=== PATIENT | male | born 1965 | race African-American/Black ===

== ENCOUNTER 2016-06-09 21:40 | Emergency (ER) | payer MEDICARE, MEDICAID ==
[2016-06-09 22:13] VITALS: BP 158/107
--- NOTE | 2016-06-09 23:17 | ER Document Report ---
ED General - General Chief Complaint: High Blood Pressure Stated Complaint: ALTERED MENTAL STATUS Cannot obtain history due to: Mentally challenged Notes: Patient is a 50-year-old male presents with family who is concerned about his high blood pressure. Patient is nonverbal and has been so since . He has a history of CVA with right-sided deficits. He is nonverbal and unable to communicate any symptoms. Family denies any concerns beyond that they noted his blood pressure was high at home so they want him evaluated because they were worried he would have a recurrent stroke. TRAVEL OUTSIDE OF THE [place] IN LAST 30 DAYS: No - Related Data Allergies/Adverse Reactions: No Known Allergies Allergy (Unverified 10/11/15 04:34) Past Medical History - General Information source: Relative - Social History Smoking Status: Never Smoker Frequency of alcohol use: None Drug Abuse: None Lives with: Family Family History: Reviewed & Not Pertinent Psychiatric Medical History: Denies: Hx Depression Review of Systems - Review of Systems -: Yes ROS unobtainable due to patient's medical condition Physical Exam - Vital signs Vitals: Pulse Resp BP Pulse Ox 76 18 158/107 H 100 06/09/16 21:49 06/09/16 21:49 06/09/16 21:49 06/09/16 21:49 Interpretation: Hypertensive Notes: PHYSICAL EXAMINATION: GENERAL: Appears in no distress HEAD: Atraumatic, normocephalic. EYES: sclera anicteric, conjunctiva are normal. ENT: Moist mucous membranes. NECK: No lymphadenopathy LUNGS: Normal work of breathing HEART: Regular rate and rhythm. 2+ radial pulses bilaterally EXTREMITIES: no pitting or edema. No cyanosis. NEUROLOGICAL: Right-sided hemiparesis. PSYCH: Nonverbal SKIN: Warm, Dry, normal turgor, no rashes or lesions noted. Course - Re-evaluation Re-evalutation: 06/09/16 23:15 Presentation of asymptomatic hypertension. Patient is nonverbal and family states the only reason they brought him to the emergency department today was because they were worried about how high his blood pressure was at home with a maximal systolic blood pressure of 176. Patient denies any symptoms concerning for SAH, dissection, VA, or encephalopaty. Alert, oriented, and denies any symptoms at time of assessment. Normal neuro exam. Per ACE[employer] policy guidelines, will therefore not obtain any labs or EKG at this time and will not initiate new BP treatment. I have discussed critical importance of follow up with PCP within 1 week and increased risk of devastating stroke, heart attack, respiratory distress, and other life threatening complications if blood pressure is not reduced appropriately. I have increased his amlodipine from 2.5 mg daily to 5 mg daily.At this time will discharge with return precautions and follow-up recommendations. Verbal discharge instructions given a the bedside and opportunity for questions given. Medication warnings reviewed. Family is in agreement with this plan and has verbalized understanding of return precautions and the need for primary care follow-up in the next 24-72 hours. - Vital Signs Vital signs: Temp Pulse Resp BP Pulse Ox 98.3 F 76 18 158/107 H 100 06/09/16 22:12 06/09/16 21:49 06/09/16 21:49 06/09/16 21:49 06/09/16 21:49 Discharge - Discharge Clinical Impression: Essential hypertension Condition: Good Disposition: HOME, SELF-CARE Additional Instructions: You were seen today for blood pressure that was high. This is a long-term risk factor for multiple medical problems including heart attack and stroke. However, the blood pressure in of itself will not cause you to have an acute stroke or heart attack over the course of just several days or weeks. You need to have a gradual reduction of your blood pressure back to normal levels over the next several months in conjunction with your primary care physician. Please increase the amlodipine from 2.5 mg to 5 mg daily. Check his blood pressure once daily in the morning. Follow closely with his primary care doctor.
== END 2016-06-09 23:25 | disposition home or self-care (01) ==
LOC: ER 21:40
DX: I10 Essential (primary) hypertension (principal); R41.82 Altered mental status, unspecified; I69.951 Hemiplegia and hemiparesis following unspecified cerebrovascular disease affecting right dominant side
CPT/HCPCS: 99283

== ENCOUNTER 2017-05-11 19:24 | Inpatient (IN) | payer MEDICARE, MEDICAID ==
[2017-05-11] MEDS ORDERED: ACETAMINOPHEN 325 MG TABLET PO ONE (20:41)
[2017-05-11] MEDS ORDERED: NORMAL SALINE 1000 ML 1,000 ML IV ONE (20:41)
--- NOTE | 2017-05-11 20:45 | ER Document Report ---
ED Fever - General Chief Complaint: Fever Stated Complaint: FEVER Time Seen by Provider: 05/11/17 20:35 Notes: Patient is a 51-year-old male that comes emergency department for chief complaint of fever, sister who is his local area network systems adminstrator at home states that his fever started Sunday and has continued over the past 2 days, patient also has a congested cough. No vomiting, patient is eating and drinking normally, patient is nonverbal but he has not had any obvious complaints per sister. Patient nonverbal after CVA, he is medicated for hypertension and takes aspirin but no other medical history is reported. He has had the influenza vaccine. TRAVEL OUTSIDE OF THE [place] IN LAST 30 DAYS: No - Related Data Allergies/Adverse Reactions: No Known Allergies Allergy (Unverified 05/11/17 19:30) Past Medical History - General Information source: Patient - Social History Smoking Status: Never Smoker Frequency of alcohol use: None Drug Abuse: None Lives with: Family Family History: Reviewed & Not Pertinent - Past Medical History Cardiac Medical History: Reports: Hx Hypertension Neurological Medical History: Reports: Hx Cerebrovascular Accident - Nonverbal after CVA Psychiatric Medical History: Denies: Hx Depression - Immunizations Immunizations up to date: Yes Hx Diphtheria, Pertussis, Tetanus Vaccination: Yes Review of Systems - Review of Systems Constitutional: See HPI EENT: No symptoms reported Cardiovascular: No symptoms reported Respiratory: See HPI Gastrointestinal: No symptoms reported Genitourinary: No symptoms reported Male Genitourinary: No symptoms reported Musculoskeletal: No symptoms reported Skin: No symptoms reported Hematologic/Lymphatic: No symptoms reported Neurological/Psychological: No symptoms reported Physical Exam - Vital signs Vitals: Temp Pulse Resp BP Pulse Ox 103.1 F H 127 H 16 118/95 H 95 05/11/17 19:39 05/11/17 19:39 05/11/17 19:39 05/11/17 19:39 05/11/17 19:39 - General General appearance: Alert In distress: None - HEENT Head: Normocephalic, Atraumatic Eyes: Normal Conjunctiva: Normal Extraocular movements intact: Yes Eyelashes: Normal Pupils: PERRL Mouth/Lips: Normal Mucous membranes: Normal Pharynx: Normal Neck: Normal - Respiratory Respiratory status: No respiratory distress, Tachypnea - Minimal tachypnea Breath sounds: Nonproductive cough. No: Decreased air movement, Wheezing - Cardiovascular Rhythm: Regular, Tachycardia Heart sounds: Normal auscultation, S1 appreciated, S2 appreciated Murmur: No Normal capillary refill: Yes - Abdominal Inspection: Normal Tenderness: Nontender. No: Tender, McBurney's point, Richardson's sign, Guarding - Back Back: Normal, Nontender. No: Tender - Extremities General upper extremity: Normal inspection, Nontender, Normal strength, Normal temperature General lower extremity: Normal inspection, Nontender, Normal strength, Normal temperature. No: Edema - Neurological Neuro grossly intact: Yes Christopher Coma Scale Eye Opening: Spontaneous Christopher Coma Scale Verbal: Oriented Christopher Coma Scale Motor: Obeys Commands [place] Coma Scale Total: 15 Speech: Normal Cranial nerves: Normal Cerebellar coordination: Normal Motor strength normal: LUE, RUE, LLE, RLE Additional motor exam normals: Equal transportation analyst Sensory: Normal - Psychological Associated symptoms: Normal affect, Normal mood - Skin Skin Temperature: Hot Skin Moisture: Dry Skin Color: Flushed Course - Re-evaluation Re-evalutation: 05/11/17 20:40 Patient febrile and tachycardic, has a congested cough, possible pneumonia and sepsis. Clear lung sounds, no hypoxia, no respiratory distress, normal capillary refill, soft abdomen, cooperative and alert. Workup pending. Treating fever, giving IV fluids. Chest x-ray consistent with right lower lobe pneumonia. CBC shows leukocytosis with left shift but no bandemia. Chemistry generally unremarkable. EKG showing tachycardia. Starting antibiotics. 05/11/17 22:15 Patient has been reevaluated, he does have mild hypoxia at about 93-94% on room air, placed on 2 L nasal cannula. Minimal tachypnea, no obvious signs of distress. Good capillary refill. Alert, responsive, cooperative. Tachycardia has improved but still persists. Suspected sepsis without shock. 05/12/[address] Gunter, patient will be admitted to the hospital ( telemetry full admission) for pneumonia and possible sepsis. Sister states understanding and agreement. - Vital Signs Vital signs: Temp Pulse Resp BP Pulse Ox 98.2 F 127 H 16 118/95 H 95 05/11/17 21:50 05/11/17 19:39 05/11/17 19:39 05/11/17 19:39 05/11/17 19:39 - Laboratory Result Diagrams: 05/11/17 21:00 05/11/17 21:00 Laboratory results interpreted by me: 05/11/17 05/11/17 05/11/17 20:38 21:00 21:00 WBC 16.3 H RBC 4.27 L Hgb 12.9 L Hct 37.6 L RDW 14.1 H Seg Neuts % (Manual) 91 H Lymphocytes % (Manual) 4 L Abs Neuts (Manual) 14.8 H VBG pH Potassium 3.2 L Glucose 116 H Magnesium Urine Protein 100 H Urine Blood MODERATE H Urine Urobilinogen 2.0 H 05/11/17 05/11/17 21:00 22:09 WBC RBC Hgb Hct RDW Seg Neuts % (Manual) Lymphocytes % (Manual) Abs Neuts (Manual) VBG pH 7.47 H Potassium Glucose Magnesium 1.5 L Urine Protein Urine Blood Urine Urobilinogen Discharge - Discharge Clinical Impression: Tachycardia, Hypoxia Fever Qualifiers: Fever type: unspecified Qualified Code(s): R50.9 - Fever, unspecified Pneumonia Qualifiers: Pneumonia type: due to unspecified organism Laterality: right Lung location: lower lobe of lung Qualified Code(s): J18.1 - Lobar pneumonia, unspecified organism Leukocytosis Qualifiers: Leukocytosis type: unspecified Qualified Code(s): D72.829 - Elevated white blood cell count, unspecified Condition: Stable Disposition: ADMITTED INPATIENT Admitting Provider: Hospitalist Unit Admitted: Telemetry
[2017-05-11 21:22] LABS: HEMATOCRIT 37.6 % (37.9-51.0); HEMOGLOBIN 12.9 g/dL (13.5-17.0); MEAN CORPUSCULAR HEMOGLOBIN 30.2 pg (27.0-33.4); MEAN CORPUSCULAR HGB CONC 34.2 g/dL (32.0-36.0); MEAN CORPUSCULAR VOLUME 88 fl (80-97); PLATELET COUNT 158 10^3/uL (150-450); RED BLOOD COUNT 4.27 10^6/uL (4.35-5.55); RED CELL DISTRIBUTION WIDTH 14.1 % (11.5-14.0); WHITE BLOOD COUNT 16.3 10^3/uL (4.0-10.5)
[2017-05-11 21:30] LABS: INTERNATIONAL RATION (INR) 1.14; PROTHROMBIN TIME 15.3 SEC (11.4-15.4)
--- NOTE | 2017-05-11 21:39 | RADIOLOGY REPORT (SQ) ---
EXAM DESCRIPTION: CHEST PA/LAT COMPLETED DATE/TIME: 05/11/2017 9:22 pm REASON FOR STUDY: cough, fever COMPARISON: 10/10/2015 EXAM PARAMETERS: NUMBER OF VIEWS: two views TECHNIQUE: Digital Frontal and Lateral radiographic views of the chest acquired. RADIATION DOSE: NA LIMITATIONS: none FINDINGS: LUNGS AND PLEURA: New patchy consolidation in the right lower lobe. No pleural effusion o r pneumothorax. MEDIASTINUM AND HILAR STRUCTURES: Stable. HEART AND VASCULAR STRUCTURES: Stable. BONES: No acute findings. HARDWARE: None in the chest. OTHER: No other significant finding. IMPRESSION: New patchy consolidation in the right lower lobe. TECHNICAL DOCUMENTATION: JOB ID: [id number] [id number] 2010 [employer]- All Rights Reserved Reading location - IP/workstation name: [email or web address]
[2017-05-11 21:42] LABS: ALANINE AMINOTRANSFERASE 56 U/L (21-72); ALBUMIN 4.3 g/dL (3.5-5.0); ALKALINE PHOSPHATASE 72 U/L (38-126); ANION GAP 12 (5-19); ASPARTATE AMINO TRANSFERASE 47 U/L (17-59); BILIRUBIN,DIRECT 0.4 mg/dL (0.0-0.4); BILIRUBIN,TOTAL 0.5 mg/dL (0.2-1.3); BLOOD UREA NITROGEN 15 mg/dL (7-20); CALCIUM 9.1 mg/dL (8.4-10.2); CARBON DIOXIDE 28 mmol/L (22-30); CHLORIDE 98 mmol/L (98-107); GLUCOSE 116 mg/dL (75-110); POTASSIUM 3.2 mmol/L (3.6-5.0); SODIUM 138.2 mmol/L (137-145); TOTAL PROTEIN 7.6 g/dL (6.3-8.2)
[2017-05-11 21:48] LABS: ABSOLUTE LYMPHOCYTES# (MANUAL) 0.7 10^3/uL (0.5-4.7); ABSOLUTE MONOCYTES # (MANUAL) 0.8 10^3/uL (0.1-1.4); ABSOLUTE NEUTROPHILS# (MANUAL) 14.8 10^3/uL (1.7-8.2); BASOPHILS % (MANUAL) 0 % (0-2); EOSINOPHILS % (MANUAL) 0 % (0-6); LYMPHOCYTES % (MANUAL) 4 % (13-45); MONOCYTES % (MANUAL) 5 % (3-13); SEGMENTED NEUTROPHILS % (MAN) 91 % (42-78); TOTAL CELLS COUNTED 100
[2017-05-11 21:49] LABS: ANISOCYTOSIS SLIGHT; PLATELET COMMENT ADEQUATE; TOXIC GRANULATION SLIGHT
[2017-05-11 21:51] LABS: APPEARANCE,URINE SLIGHTLY-CLOUDY; BILIRUBIN,URINE NEGATIVE (NEGATIVE); COLOR,URINE YELLOW; GLUCOSE, URINE NEGATIVE (NEGATIVE); KETONES,URINE NEGATIVE (NEGATIVE); LEUKOCYTE ESTERASE,URINE NEGATIVE (NEGATIVE); NITRITE,URINE NEGATIVE (NEGATIVE); PROTEIN,URINE 100 mg/dL (NEGATIVE); URINE SPECIFIC GRAVITY 1.018
[2017-05-11] MEDS ORDERED: AZITHROMYCIN INJ 500 MG VIAL IV ONE (22:00)
[2017-05-11] MEDS ORDERED: CEFTRIAXONE 1 GM/D5W RTU 1 GM/50 ML RTUPB IV ONE (22:00)
[2017-05-11] MEDS ORDERED: CEFTRIAXONE INJ 1000 MG VIAL ONE (22:06)
[2017-05-11] MEDS ORDERED: ACETAMINOPHEN 325 MG TABLET PO PRN (22:22)
[2017-05-11] MEDS ORDERED: ALBUTEROL SULFATE 0.083% NEB 2.5 MG/3 ML AMPUL NEB PRN (22:22)
[2017-05-11] MEDS ORDERED: PROMETHAZINE HCL INJ 25 MG/1 ML VIAL IV PRN (22:22)
[2017-05-11 22:26] LABS: VENOUS BLOOD BASE EXCESS 2.8 mmol/L; VENOUS BLOOD HCO3 26.4 mmol/L (20-32); VENOUS BLOOD PCO2 37.1 mmHg (35-63); VENOUS BLOOD PH 7.47 (7.30-7.42)
[2017-05-12] MEDS ORDERED: POTASSIUM CHLORIDE 10 MEQ TABLET.SA PO ONE ×2 (01:06→05:50)
[2017-05-12] MEDS ORDERED: MAGNESIUM SULFATE INJ 8 MEQ/2 ML IV ONE (01:07)
--- NOTE | 2017-05-12 01:09 | PDOC H&P ---
History of Present Illness Admission Date/PCP: KWASI MENDOZA MD Patient complains of: Intermittent fever and worsening dry cough for the last 3 days per sister. 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 The patient apparently has been spiking fevers up to 102 and has been having dry cough for the last 3 days. But she did not notice that he was having any shortness of breath or chest pain. The patient's mother and other sister whom he lives with both have a cold. He is up-to-date with his flu vaccine. His sister also mentioned that the patient is on a regular diet and he does not choke on his food. In the ED, his temperature was 103.1, heart rate 127, respiratory rate 16, blood pressure 118/95 with oxygen saturation of 95% on room air. His WBC was 16.3 with hemoglobin of 12.9. A chest x-ray was done which showed right lower lobe pneumonia. He received 1 g Rocephin and 500 mg IV Zithromax 1. 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 Children Family History Reviewed: No Sibling(s) Family History Reviewed.: Yes Medication/Allergy Home Medications: Amlodipine Besylate [Norvasc 2.5 mg Tablet] 2.5 mg PO DAILY #30 tablet 10/13/15 Aspirin [Ecotrin 81 mg EC Tablet] 81 mg PO DAILY tabec 10/13/15 Atorvastatin Calcium [Lipitor 20 mg Tablet] 20 mg PO QHS #30 tablet 10/13/15 Docusate Sodium [Colace 100 mg Capsule] 100 mg PO DAILY #30 capsule 10/13/15 Polyethylene Glycol 3350 [Miralax Powder 17 gm/Packet] 1 packet PO DAILY PRN # 30 pkg 10/13/15 Allergies/Adverse Reactions: No Known Allergies Allergy (Unverified 05/11/17 19:30) Review of Systems ROS unobtainable: Other - Pertinent positive and negatives as detailed in HPI. Is no report of any nausea vomiting, abdominal pain, diarrhea or any urinary problems. He ambulates using a cane per his sister. Physical Exam Vital Signs: Temp Pulse Resp BP Pulse Ox 98.2 F 127 H 16 118/95 H 95 05/11/17 21:50 05/11/17 19:39 05/11/17 19:39 05/11/17 19:39 05/11/17 19:39 Intake & Output 05/10/17 05/11/17 05/12/17 06:59 06:59 06:59 Weight 66.7 kg General appearance: PRESENT: no acute distress, well-developed Head exam: PRESENT: atraumatic, normocephalic Eye exam: PRESENT: conjunctiva pink, PERRLA. ABSENT: scleral icterus Mouth exam: PRESENT: moist, tongue midline Neck exam: PRESENT: full ROM. ABSENT: JVD Respiratory exam: PRESENT: decreased breath sounds. ABSENT: rales, rhonchi, wheezes Cardiovascular exam: PRESENT: RRR, +S1, +S2 Pulses: PRESENT: normal dorsalis pedis pul GI/Abdominal exam: PRESENT: normal bowel sounds, soft. ABSENT: distended, rebound, tenderness Rectal exam: PRESENT: deferred Extremities exam: PRESENT: other - able to move all 4 extremities. Neurological exam: PRESENT: alert, awake Skin exam: PRESENT: dry, warm. ABSENT: erythema, rash Results Laboratory Results: 05/11/17 21:00 05/11/17 21:00 05/11/17 05/11/17 05/11/17 20:38 21:00 21:00 WBC 16.3 H RBC 4.27 L Hgb 12.9 L Hct 37.6 L MCV 88 MCH 30.2 MCHC 34.2 RDW 14.1 H Plt Count 158 Seg Neutrophils % Not Reportable Lymphocytes % Not Reportable Monocytes % Not Reportable Eosinophils % Not Reportable Basophils % Not Reportable Absolute Neutrophils Not Reportable Absolute Lymphocytes Not Reportable Absolute Monocytes Not Reportable Absolute Eosinophils Not Reportable Absolute Basophils Not Reportable Sodium 138.2 Potassium 3.2 L Chloride 98 Carbon Dioxide 28 Anion Gap 12 BUN 15 Creatinine 0.85 Est GFR ( Amer) > 60 Est GFR (Non-Af Amer) > 60 Glucose 116 H Lactic Acid Calcium 9.1 Magnesium Total Bilirubin 0.5 AST 47 ALT 56 Alkaline Phosphatase 72 Total Protein 7.6 Albumin 4.3 Urine Color YELLOW Urine Appearance SLIGHTLY-CLOUDY Urine pH 6.0 Ur Specific [place] 1.018 Urine Protein 100 H Urine Glucose (UA) NEGATIVE Urine Ketones NEGATIVE Urine Blood MODERATE H Urine Nitrite NEGATIVE Ur Leukocyte Esterase NEGATIVE Urine WBC (Auto) 4 Urine RBC (Auto) 11 05/11/17 05/11/17 21:00 21:00 WBC RBC Hgb Hct MCV MCH MCHC RDW Plt Count Seg Neutrophils % Lymphocytes % Monocytes % Eosinophils % Basophils % Absolute Neutrophils Absolute Lymphocytes Absolute Monocytes Absolute Eosinophils Absolute Basophils Sodium Potassium Chloride Carbon Dioxide Anion Gap BUN Creatinine Est GFR ( Amer) Est GFR (Non-Af Amer) Glucose Lactic Acid 1.3 Calcium Magnesium 1.5 L Total Bilirubin AST ALT Alkaline Phosphatase Total Protein Albumin Urine Color Urine Appearance Urine pH Ur Specific [place] Urine Protein Urine Glucose (UA) Urine Ketones Urine Blood Urine Nitrite Ur Leukocyte Esterase Urine WBC (Auto) Urine RBC (Auto) EKG Comments: Lead EKG, sinus rhythm, ventricular rate 110, axis +100, no acute changes. Impressions: Chest X-Ray 05/11/17 20:41 IMPRESSION: New patchy consolidation in the right lower lobe. Assessment & Plan - Diagnosis (1) Sepsis Qualifiers: Sepsis type: sepsis due to unspecified organism Qualified Code(s): A41.9 - Sepsis, unspecified organism Is this a current diagnosis for this admission?: Yes Plan: Given fever, tachycardia in addition to leukocytosis in the setting of pneumonia. However, the patient does not look clinically septic. Lactic acid 1.3. We will continue Rocephin and Zithromax and follow-up blood cultures. (2) Community acquired pneumonia Is this a current diagnosis for this admission?: Yes Plan: We will continue Rocephin and Zithromax and follow-up blood cultures. (3) Essential hypertension Is this a current diagnosis for this admission?: No Plan: We will resume Norvasc 10 mg daily and monitor. (4) Electrolyte abnormality Is this a current diagnosis for this admission?: Yes Plan: hypokalemia and hypomagnesemia, will replace. (5) History of CVA with residual deficit Is this a current diagnosis for this admission?: No Plan: Right-sided weakness. The patient is only on baby aspirin, we will add Lipitor. - Time Time Spent: 50 to 70 Minutes Anticipated discharge: Home - Inpatient Certification Based on my medical assessment, after consideration of the patient's comorbidities, presenting symptoms, or acuity I expect that the services needed warrant INPATIENT care.: Yes I certify that my determination is in accordance with my understanding of Medicare's requirements for reasonable and necessary INPATIENT services [42 CFR 412.3e].: Yes
[2017-05-12] MEDS: 1/2 NORMAL SALINE 1,000 ML IV PRN ×2 (01:10→15:16)
[2017-05-12] MEDS ORDERED: MAGNESIUM SULFATE/D5W 0 GM/0 ML RTUPB IV ONE (05:51)
[2017-05-12 06:03] LABS: HEMATOCRIT 37.8 % (37.9-51.0); HEMOGLOBIN 12.8 g/dL (13.5-17.0); MEAN CORPUSCULAR HEMOGLOBIN 30.2 pg (27.0-33.4); MEAN CORPUSCULAR HGB CONC 33.9 g/dL (32.0-36.0); MEAN CORPUSCULAR VOLUME 89 fl (80-97); PLATELET COUNT 139 10^3/uL (150-450); RED BLOOD COUNT 4.25 10^6/uL (4.35-5.55); RED CELL DISTRIBUTION WIDTH 14.3 % (11.5-14.0)
[2017-05-12] MEDS ORDERED: MAGNESIUM SULFATE/D5W 1 GM/100 ML RTUPB IV ONE (06:15)
[2017-05-12 06:21] LABS: ANION GAP 10 (5-19); BLOOD UREA NITROGEN 11 mg/dL (7-20); CALCIUM 8.7 mg/dL (8.4-10.2); CARBON DIOXIDE 28 mmol/L (22-30); CHLORIDE 104 mmol/L (98-107); GLUCOSE 93 mg/dL (75-110); POTASSIUM 3.4 mmol/L (3.6-5.0); SODIUM 142.4 mmol/L (137-145)
[2017-05-12] MEDS ORDERED: POTASSIUM CHLORIDE 20 MEQ/15 ML UDCUP PO ONE (06:30)
[2017-05-12] MEDS: HEPARIN SOD (PORCINE) 5,000 UNIT/ML 1 ML SYRINGE SUBCUT SCH ×3 (06:53→21:37)
[2017-05-12] MEDS: GUAIFENESIN 600 MG TABLET.SA PO SCH ×2 (09:46→21:37)
[2017-05-12] MEDS: ASPIRIN 81 MG TABLET, ENT COATED PO SCH (09:46)
[2017-05-12] MEDS: AMLODIPINE BESYLATE 10 MG TABLET PO SCH (09:47)
--- NOTE | 2017-05-12 10:16 | EKG REPORT ---
SEVERITY:- OTHERWISE NORMAL ECG - SINUS TACHYCARDIA BORDERLINE RIGHT AXIS DEVIATION : Confirmed by: Uvaldo Temple 12-May-2017 10:15:20
--- NOTE | 2017-05-12 18:19 | PDOC PROGRESS REPORT ---
Subjective Progress Note for:: 05/12/17 Subjective:: Cornel Campa Jr is a 51 year old male who presented to the hospital for fevers and a dry cough for 3 days. Chest x-ray was done which showed right lower lobe pneumonia. The patient received 1 g Rocephin and 500 mg IV Zithromax 1. PMH CVA (right-sided residual weakness 2014), hypertension The patient was seen this morning on rounds. He is awake, chronically nonverbal , and attempts to participate in care. The patient's sister is at the bedside, she reports that the patient was able to eat his breakfast. And his breathing seems far less labored this morning compared to yesterday. The patient does not require supplemental oxygen, he is resting comfortably in room air. Reason For Visit: SEPSIS,RLL PNEUMONIA Physical Exam Vital Signs: Temp Pulse Resp BP Pulse Ox 98.5 F 102 H 16 118/75 92 05/12/17 15:09 05/12/17 15:09 05/12/17 15:09 05/12/17 15:09 05/12/17 15:09 Intake & Output 05/11/17 05/12/17 05/13/17 06:59 06:59 07:59 Intake Total 445 1004 Output Total 200 Balance 245 1004 Weight 66.7 kg General appearance: PRESENT: no acute distress Head exam: PRESENT: atraumatic Eye exam: PRESENT: conjunctiva pink Mouth exam: PRESENT: moist Neck exam: PRESENT: full ROM Respiratory exam: PRESENT: clear to auscultation jarret, symmetrical, unlabored Cardiovascular exam: PRESENT: +S1, +S2 Pulses: PRESENT: normal radial pulses, normal dorsalis pedis pul Vascular exam: PRESENT: normal capillary refill GI/Abdominal exam: PRESENT: normal bowel sounds, soft Rectal exam: PRESENT: deferred Extremities exam: PRESENT: other - Right-sided hemiparesis. Difficulty with fine motor in both hands Musculoskeletal exam: PRESENT: full ROM Neurological exam: PRESENT: alert, awake, oriented to person, oriented to place , oriented to time, oriented to situation Psychiatric exam: PRESENT: appropriate affect Skin exam: PRESENT: normal color Results Laboratory Results: 05/12/17 05:03 05/12/17 05:03 05/12/17 05/12/17 05:03 05:03 WBC 11.0 H RBC 4.25 L Hgb 12.8 L Hct 37.8 L MCV 89 MCH 30.2 MCHC 33.9 RDW 14.3 H Plt Count 139 L Sodium 142.4 Potassium 3.4 L Chloride 104 Carbon Dioxide 28 Anion Gap 10 BUN 11 Creatinine 0.77 Est GFR ( Amer) > 60 Est GFR (Non-Af Amer) > 60 Glucose 93 Calcium 8.7 Magnesium 1.8 Impressions: Chest X-Ray 05/11/17 20:41 IMPRESSION: New patchy consolidation in the right lower lobe. Assessment & Plan - Diagnosis (1) Community acquired pneumonia Qualifiers: Laterality: right Lung location: lower lobe of lung Qualified Code(s): J18.1 - Lobar pneumonia, unspecified organism Is this a current diagnosis for this admission?: Yes Plan: Continue Rocephin and Zithromax. Blood cultures no growth (2) Essential hypertension Is this a current diagnosis for this admission?: No Plan: Resume home dose of Norvasc 10 mg daily (3) History of CVA with residual deficit Is this a current diagnosis for this admission?: No Plan: Right-sided weakness. aphasia. Continue aspirin and Lipitor. (4) Sepsis Qualifiers: Sepsis type: sepsis due to unspecified organism Qualified Code(s): A41.9 - Sepsis, unspecified organism Is this a current diagnosis for this admission?: Yes Plan: Improved. The patient is no longer febrile or tachycardic. His leukocytosis is greatly improved. VSS. Patient appears nontoxic. Continue Rocephin and Zithromax for pneumonia. Blood and urine cultures no growth. - Time Time Spent with patient: 15-24 minutes Medications reviewed and adjusted accordingly: Yes Anticipated discharge: Home - Inpatient Certification Based on my medical assessment, after consideration of the patient's comorbidities, presenting symptoms, or acuity I expect that the services needed warrant INPATIENT care.: Yes I certify that my determination is in accordance with my understanding of Medicare's requirements for reasonable and necessary INPATIENT services [42 CFR 412.3e].: Yes Medical Necessity: Need for IV Antibiotics - Plan Summary Plan Summary: The plan is to discharge the patient home going antibiotic therapy for his pneumonia
[2017-05-12] MEDS: ATORVASTATIN CALCIUM 40 MG TABLET PO SCH (21:37)
[2017-05-12] MEDS: AZITHROMYCIN 500 MG in DEXTROSE 5%-WATER 250 ML IV SCH (21:38)
[2017-05-12] MEDS: CEFTRIAXONE SODIUM 1,000 MG in NORMAL SALINE 100 ML IV SCH (21:38)
[2017-05-12] MEDS ORDERED: CEFTRIAXONE 1 GM/D5W RTU 1 GM/50 ML RTUPB IV SCH (22:00)
[2017-05-12] MEDS ORDERED: VANCOMYCIN HCL INJ 1000 MG VIAL IV PRN (23:58)
[2017-05-13] MEDS ORDERED: PHARMACY COMMUNICATION ORDER MC SCH (00:15)
[2017-05-13] MEDS ORDERED: VANCOMYCIN HCL INJ 1000 MG VIAL ONE (00:46)
[2017-05-13] MEDS ORDERED: VANCOMYCIN HCL 1,000 MG in DEXTROSE 5%-WATER 250 ML IV ONE (01:00)
[2017-05-13] MEDS: HEPARIN SOD (PORCINE) 5,000 UNIT/ML 1 ML SYRINGE SUBCUT SCH ×3 (06:44→22:13)
[2017-05-13] MEDS: AMLODIPINE BESYLATE 10 MG TABLET PO SCH (10:37)
[2017-05-13] MEDS: ASPIRIN 81 MG TABLET, ENT COATED PO SCH (10:37)
[2017-05-13] MEDS: GUAIFENESIN 600 MG TABLET.SA PO SCH ×2 (10:37→22:13)
[2017-05-13] MEDS: 1/2 NORMAL SALINE 1,000 ML IV PRN (11:12)
--- NOTE | 2017-05-13 12:04 | PDOC PROGRESS REPORT ---
Subjective Progress Note for:: 05/13/17 Subjective:: Cornel Campa Jr is a 51 year old male who presented to the hospital for fevers and a dry cough for 3 days. Chest x-ray was done which showed right lower lobe pneumonia. In the ED, the patient received 1 g Rocephin and 500 mg IV Zithromax 1. PMH CVA (right-sided residual weakness 2014), hypertension The patient was seen this morning on rounds. He is awake, chronically nonverbal , and attempts to participate in care. The patient's sister is at the bedside, she reports that the patient has been coughing but not able to bring up mucous. Reason For Visit: SEPSIS,RLL PNEUMONIA Physical Exam Vital Signs: Temp Pulse Resp BP Pulse Ox 99.7 F 102 H 20 132/90 H 91 L 05/13/17 08:39 05/13/17 08:39 05/13/17 08:39 05/13/17 08:39 05/13/17 08:39 Intake & Output 05/12/17 05/13/17 05/14/17 05:59 06:59 06:59 Intake Total Output Total Balance Weight General appearance: PRESENT: no acute distress Eye exam: PRESENT: conjunctiva pink Mouth exam: PRESENT: moist Respiratory exam: PRESENT: clear to auscultation jarret, symmetrical, unlabored Cardiovascular exam: PRESENT: +S1, +S2 Pulses: PRESENT: normal radial pulses, normal dorsalis pedis pul Vascular exam: PRESENT: normal capillary refill GI/Abdominal exam: PRESENT: normal bowel sounds, soft Rectal exam: PRESENT: deferred Extremities exam: PRESENT: other - R sided weakness -residual deficit from previous CVA in 2014 Musculoskeletal exam: PRESENT: other - Right-sided weakness -residual deficits from CVA in 2014. Patient also noted to have difficulty with fine motor skills in both hands Neurological exam: PRESENT: alert, awake, oriented to person, oriented to place , oriented to time, oriented to situation Psychiatric exam: PRESENT: appropriate affect Results Laboratory Results: 05/12/17 05:03 05/12/17 05:03 Impressions: Chest X-Ray 05/11/17 20:41 IMPRESSION: New patchy consolidation in the right lower lobe. Status: Imported from PACS Assessment & Plan - Diagnosis (1) Community acquired pneumonia Qualifiers: Laterality: right Lung location: lower lobe of lung Qualified Code(s): J18.1 - Lobar pneumonia, unspecified organism Is this a current diagnosis for this admission?: Yes Plan: The patient shows no signs of respiratory distress, he is non-toxic appearing. The sister states the patient is coughing but unable to bring up secretions. Continue mucinex, Rocephin and Zithromax. Blood cultures no growth - only contamination (2) Essential hypertension Is this a current diagnosis for this admission?: No Plan: The patient's blood pressure has been well controlled on his home medications. Continue Norvasc 10 mg daily. (3) History of CVA with residual deficit Is this a current diagnosis for this admission?: No Plan: Right-sided weakness. poor fine motor skills in both hands. aphasia. Continue aspirin and Lipitor. (4) Sepsis Qualifiers: Sepsis type: sepsis due to unspecified organism Qualified Code(s): A41.9 - Sepsis, unspecified organism Is this a current diagnosis for this admission?: Yes Plan: Improved. The patient is no longer febrile or tachycardic. Leukocytosis improving. VSS. Patient appears nontoxic. Continue Rocephin and Zithromax for pneumonia. Urine cultures: no growth Blood cultures: 1 out of 4 bottles grew coag negative staph. likely contamination. will keep same antibiotic regimen. - Time Time Spent with patient: 15-24 minutes Anticipated discharge: Home - Inpatient Certification Based on my medical assessment, after consideration of the patient's comorbidities, presenting symptoms, or acuity I expect that the services needed warrant INPATIENT care.: Yes I certify that my determination is in accordance with my understanding of Medicare's requirements for reasonable and necessary INPATIENT services [42 CFR 412.3e].: Yes Medical Necessity: Risk of Complication if Not Cared For in Hospital - Plan Summary Plan Summary: The plan is to discharge the patient back home in the care of his family
[2017-05-13] MEDS ORDERED: VANCOMYCIN HCL 750 MG in DEXTROSE 5%-WATER 250 ML IV ONE (12:30)
[2017-05-13] MEDS: VANCOMYCIN HCL 750 MG in DEXTROSE 5%-WATER 250 ML IV SCH (17:51)
[2017-05-13] MEDS: ATORVASTATIN CALCIUM 40 MG TABLET PO SCH (22:13)
[2017-05-13] MEDS: CEFTRIAXONE SODIUM 1,000 MG in NORMAL SALINE 100 ML IV SCH (22:13)
[2017-05-13] MEDS: AZITHROMYCIN 500 MG in DEXTROSE 5%-WATER 250 ML IV SCH (22:58)
[2017-05-14] MEDS: VANCOMYCIN HCL 750 MG in DEXTROSE 5%-WATER 250 ML IV SCH ×2 (01:33→10:47)
[2017-05-14] MEDS: HEPARIN SOD (PORCINE) 5,000 UNIT/ML 1 ML SYRINGE SUBCUT SCH ×2 (05:02→14:26)
[2017-05-14 05:53] LABS: HEMATOCRIT 36.8 % (37.9-51.0); HEMOGLOBIN 12.7 g/dL (13.5-17.0); MEAN CORPUSCULAR HEMOGLOBIN 30.4 pg (27.0-33.4); MEAN CORPUSCULAR HGB CONC 34.5 g/dL (32.0-36.0); MEAN CORPUSCULAR VOLUME 88 fl (80-97); PLATELET COUNT 164 10^3/uL (150-450); RED BLOOD COUNT 4.18 10^6/uL (4.35-5.55); WHITE BLOOD COUNT 6.4 10^3/uL (4.0-10.5)
[2017-05-14] MEDS: ASPIRIN 81 MG TABLET, ENT COATED PO SCH (09:55)
[2017-05-14] MEDS: GUAIFENESIN 600 MG TABLET.SA PO SCH (09:55)
[2017-05-14 10:33] LABS: VANCOMYCIN,TROUGH 9.1 ug/mL (5.0-20.0)
[2017-05-14] MEDS: AMLODIPINE BESYLATE 10 MG TABLET PO SCH (10:47)
[2017-05-14] MEDS ORDERED: PROMETHAZINE HCL INJ 25 MG/1 ML VIAL IV PRN (12:30)
[2017-05-14 14:39] VITALS: BP 134/91
[2017-05-14] MEDS ORDERED: GUAIFENESIN 600 MG TABLET.SA PO SCH (22:00)
[2017-05-15] MEDS ORDERED: ASPIRIN 81 MG TABLET, ENT COATED PO SCH (10:00)
--- NOTE | 2017-06-01 09:49 | PDOC DISCHARGE SUMMARY ---
General - Admit/Disc Date/PCP Admission Date/Primary Care Provider: 05/11/17 22:21 KWASI MENDOZA MD Discharge Date: 05/14/17 - Discharge Diagnosis (1) Community acquired pneumonia Is this a current diagnosis for this admission?: Yes Summary: Treated with Rocephin and Zithromax for community acquired PNA. Patient's sister (caregiver) states he is able to cough, but unable to bring up secretions. Treated with mucinex, continued post-discharge. Discharged home on PO levaquin. (2) Essential hypertension Is this a current diagnosis for this admission?: No Summary: Family endorses a history of HTN. Blood pressure well controlled on home dose Norvasc. Continue post discharge (3) History of CVA with residual deficit Is this a current diagnosis for this admission?: No Summary: CVA in 2014. Residual R sided weakness. Poor fine motor control in both hands. Able to ambulate with assistance. Patient on ASA and statin therapy. (4) Sepsis Is this a current diagnosis for this admission?: Yes Summary: Initially presented with sepsis as evidence by tachycardia, leukocytosis, and fever. Following IVF and antibiotics, the patient's vital signs stabilized and his leukocytosis improved. Urine culture: no growth Blood culture: 1 out of 4 bottles grew coag negative staph, likely contamination. no change to antibiotic regimen - Additional Information Resuscitation Status: Full Code Discharge Diet: As Tolerated Discharge Activity: Activity As Tolerated Prescriptions: Guaifenesin [Mucinex Sr 600 mg Tablet.sa] 1,200 mg PO Q12 #14 tablet.sa Levofloxacin [Levaquin 750 mg Tablet] 750 mg PO DAILY #5 tablet Home Medications: Aspirin [Ecotrin 81 mg EC Tablet] 81 mg PO DAILY tabec 10/13/15 Amlodipine Besylate 10 mg PO DAILY 05/12/17 Cetirizine HCl [Zyrtec 10 mg Tablet] 10 mg PO DAILY 05/12/17 Amlodipine Besylate [Norvasc 10 mg Tablet] 10 mg PO DAILY tablet 05/14/17 Aspirin [Ecotrin 81 mg EC Tablet] 81 mg PO DAILY tabec 05/14/17 Atorvastatin Calcium [Lipitor 40 mg Tablet] 40 mg PO QHS tablet 05/14/17 Guaifenesin [Mucinex Sr 600 mg Tablet.sa] 1,200 mg PO Q12 #14 tablet.sa Levofloxacin [Levaquin 750 mg Tablet] 750 mg PO DAILY #5 tablet 05/14/17 History of Present Illness Patient complains of: PNA History of Present Illness: YANNA MCGREGOR JR is a 51 year old male mute with history of CVA (with right- sided residual weakness in 2014) and hypertension was admitted with above- mentioned complaints. 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 The patient apparently has been spiking fevers up to 102 and has been having dry cough for the last 3 days. But she did not notice that he was having any shortness of breath or chest pain. The patient's mother and other sister whom he lives with both have a cold. He is up-to-date with his flu vaccine. His sister also mentioned that the patient is on a regular diet and he does not choke on his food. In the ED, his temperature was 103.1, heart rate 127, respiratory rate 16, blood pressure 118/95 with oxygen saturation of 95% on room air. His WBC was 16.3 with hemoglobin of 12.9. A chest x-ray was done which showed right lower lobe pneumonia. He received 1 g Rocephin and 500 mg IV Zithromax 1. Hospital Course Hospital Course: as above Physical Exam Vital Signs: Temp Pulse Resp BP Pulse Ox 98.8 F 85 18 134/91 H 96 05/14/17 14:35 05/14/17 14:35 05/14/17 14:35 05/14/17 14:35 05/14/17 14:35 General appearance: PRESENT: no acute distress Eye exam: PRESENT: conjunctiva pink Mouth exam: PRESENT: moist Teeth exam: PRESENT: poor dentation Neck exam: PRESENT: full ROM Respiratory exam: PRESENT: clear to auscultation jarret, symmetrical, unlabored Cardiovascular exam: PRESENT: +S1, +S2 Pulses: PRESENT: normal radial pulses, normal dorsalis pedis pul GI/Abdominal exam: PRESENT: normal bowel sounds, soft Rectal exam: PRESENT: deferred Extremities exam: PRESENT: other - poor fine motor control in both hands. R sided weakness, residual effects from previous CVA in 2014 Musculoskeletal exam: PRESENT: other - poor fine motor control in both hands. R sided weakness, residual effects from previous CVA in 2014 Neurological exam: PRESENT: alert, awake, oriented to person, oriented to place , oriented to time, oriented to situation Skin exam: PRESENT: normal color Results Laboratory Results: 05/14/17 04:37 05/14/17 10:02 Impressions: Chest X-Ray 05/11/17 20:41 IMPRESSION: New patchy consolidation in the right lower lobe. Status: Imported from PACS Qualifiers - * PATEINT BEING DISCHARGED WITH ANY OF THE FOLLOWING DIAGNOSIS?: No Plan Discharge Plan: Discharge home on antibiotics to complete treatment for community acquired PNA. Also sent home with Mucinex. Time Spent: Less than 30 Minutes
== END 2017-05-14 15:25 | disposition home or self-care (01) | DRG 871 ==
LOC: ER 19:24 → EH 22:21 → 4S 05-12 03:30
PROVIDERS: ADMIT Internal Medicine Geriatric Medicine; ATTEND Internal Medicine Geriatric Medicine
DX: A41.9 Sepsis, unspecified organism (principal); J18.9 Pneumonia, unspecified organism; I69.351 Hemiplegia and hemiparesis following cerebral infarction affecting right dominant side; E83.42 Hypomagnesemia; F94.0 Selective mutism; I10 Essential (primary) hypertension; E87.6 Hypokalemia; Z79.82 Long term (current) use of aspirin; Z79.899 Other long term (current) drug therapy
CPT/HCPCS: 36415; 71046; 80048; 80053; 80202; 81001; 82565; 82803; 83605; 83735; 85025; 85027; 85610; 87040; 87077; 87086; 87186; 93005; 93010; 96361; 96374; 99285; J0456; J0696; J1644; J3370; J3475; J7030; J7060